=== PATIENT | male | born 1950 | race Native Hawaiian/Other Pacific Islander ===

== ENCOUNTER 2017-04-11 11:50 | Outpatient (CLI) | payer OTHER ==
[~2017-04-11] VITALS: Ht 175.3 cm; Wt 71.7 kg
[~2017-04-11 11:50] MED LIST: CLONAZEP ODT2 MG; GLIP10TA55 PO; GLUCOVANCE1 TA1; HYDR10TA47A PO; HYDR5TAB9 PO; HYDROCO/APAP1 T14; IBUP800T30; LEVEMIR FLEXPEN SC; NOVOLOG100 MG/ML; ZANTAC 75 PO
[2017-04-11 12:40] VITALS: BP 133/62; TEMP 97.7
[2017-04-11 12:52] LABS: PLATELET COUNT 402 K/uL (142-355)
[2017-04-11 13:20] LABS: POTASSIUM 4.7 mmol/L (3.6-5.2); SODIUM 137 mmol/L (136-145)
== END 2017-04-11 12:40 | disposition home or self-care (01) ==
LOC: INF 11:50 → LAB 11:50 → INF 12:40
PROVIDERS: Family Medicine
DX: E10.10 Type 1 diabetes mellitus with ketoacidosis without coma (principal); E87.6 Hypokalemia; G47.09 Other insomnia; Z79.4 Long term (current) use of insulin; K21.9 Gastro-esophageal reflux disease without esophagitis; J44.9 Chronic obstructive pulmonary disease, unspecified; M54.5 Low back pain; I12.9 Hypertensive chronic kidney disease with stage 1 through stage 4 chronic kidney disease, or unspecified chronic kidney disease; N18.3 Chronic kidney disease, stage 3 (moderate); L03.114 Cellulitis of left upper limb
CPT/HCPCS: 80053; 80061; 81000; 82306; 83036; 84439; 84443; 85027; 96372; J0696

== ENCOUNTER 2017-04-12 10:57 | Outpatient (CLI) | payer OTHER ==
[~2017-04-12] VITALS: Ht 175.3 cm; Wt 71.7 kg
[2017-04-12 11:04] VITALS: BP 113/68; TEMP 98
== END 2017-04-12 19:14 | disposition home or self-care (01) ==
LOC: INF 10:57
DX: L03.114 Cellulitis of left upper limb (principal)
CPT/HCPCS: J0696

== ENCOUNTER 2017-04-13 10:38 | Outpatient (CLI) | payer OTHER | END 2017-04-13 19:07 | disposition home or self-care (01) | LOC: INF 10:38 | DX: L03.114 Cellulitis of left upper limb (principal); E11.9 Type 2 diabetes mellitus without complications | CPT/HCPCS: 96372; J0696 ==

== ENCOUNTER 2017-06-18 20:08 | Outpatient (CLI) | payer OTHER | END 2017-06-18 20:20 | disposition short-term general hospital (02) | LOC: AMB 20:08 | DX: E11.65 Type 2 diabetes mellitus with hyperglycemia (principal); R11.2 Nausea with vomiting, unspecified | CPT/HCPCS: A0425; A0427 ==

== ENCOUNTER 2017-06-18 20:24 | Emergency (ER) | payer OTHER ==
[~2017-06-18] VITALS: Ht 175.3 cm; Wt 74.8 kg
[2017-06-18 21:05] LABS: PLATELET COUNT 471 K/uL (142-355)
[2017-06-18 22:35] LABS: POTASSIUM 5.8 mmol/L (3.6-5.2)
[2017-06-19 00:21] VITALS: BP 148/78; TEMP 98.7
== END 2017-06-19 00:15 | disposition short-term general hospital (02) ==
LOC: ED 20:24
DX: E13.10 Other specified diabetes mellitus with ketoacidosis without coma (principal); R11.2 Nausea with vomiting, unspecified
CPT/HCPCS: 36415; 36600; 51702; 80053; 81002; 82805; 85027; 93005; 96360; 96361; 96365; 96375; 96376; 99285; J1815; J2405; J3490

== ENCOUNTER 2017-11-01 09:10 | Outpatient (CLI) | payer OTHER ==
[2017-11-01 09:41] LABS: PLATELET COUNT 592 K/uL (142-355)
[2017-11-01 10:07] LABS: POTASSIUM 4.4 mmol/L (3.6-5.2)
== END 2017-11-01 19:38 | disposition home or self-care (01) ==
LOC: LABW 09:10
PROVIDERS: Family Medicine
DX: E11.65 Type 2 diabetes mellitus with hyperglycemia (principal); E55.9 Vitamin D deficiency, unspecified
CPT/HCPCS: 36415; 80053; 80061; 81000; 82306; 83036; 85027

== ENCOUNTER 2019-12-31 10:44 | Emergency (ER) | payer OTHER ==
[~2019-12-31] VITALS: Ht 175.3 cm; Wt 72.6 kg
[2019-12-31 11:15] LABS: PLATELET COUNT 490 K/uL (142-355)
[2019-12-31 12:05] LABS: SODIUM 116 mmol/L (136-145)
[2019-12-31 12:06] LABS: POTASSIUM 6.3 mmol/L (3.6-5.2)
[2019-12-31 14:55] VITALS: BP 112/66
== END 2019-12-31 14:55 | disposition short-term general hospital (02) ==
LOC: ED 10:44
PROVIDERS: Family Medicine
PROC: 0T9B70Z Drainage of Bladder with Drainage Device, Via Natural or Artificial Opening (ICD-10-PCS; principal; 2019-12-31)
DX: A41.9 Sepsis, unspecified organism (principal); E11.65 Type 2 diabetes mellitus with hyperglycemia; Z79.4 Long term (current) use of insulin; E87.1 Hypo-osmolality and hyponatremia
CPT/HCPCS: 36415; 36600; 51702; 80053; 81000; 82150; 82550; 82553; 82805; 82947; 82962; 83605; 83690; 84484; 85007; 85027; 85610; 87040; 93005; 96361; 96365; 96366; 96375; 99285; J0696; J1815; J2060

== ENCOUNTER 2020-02-07 04:55 | Emergency (ER) | payer OTHER ==
[~2020-02-07] VITALS: Ht 175.3 cm; Wt 47.6 kg
[2020-02-07 05:52] LABS: POTASSIUM 5.8 mmol/L (3.6-5.2)
[2020-02-07 05:53] LABS: PLATELET COUNT 641 K/uL (142-355)
[2020-02-07 10:00] VITALS: BP 121/51
== END 2020-02-07 10:20 | disposition short-term general hospital (02) ==
LOC: ED 05:01
PROC: 0T9B70Z Drainage of Bladder with Drainage Device, Via Natural or Artificial Opening (ICD-10-PCS; principal; 2020-02-07)
DX: E11.10 Type 2 diabetes mellitus with ketoacidosis without coma (principal); Z79.4 Long term (current) use of insulin; E87.2 Acidosis; A41.9 Sepsis, unspecified organism; K72.90 Hepatic failure, unspecified without coma
CPT/HCPCS: 36415; 36600; 51702; 80053; 81000; 81002; 82140; 82805; 82947; 82962; 83605; 83735; 84484; 85027; 87040; 93005; 96360; 96361; 96365; 96366; 96368; 96375; 96376; 99285; J1815; J2543; J3370; J3490

== ENCOUNTER 2020-04-13 08:18 | Outpatient (CLI) | payer OTHER | END 2020-04-13 19:46 | disposition home or self-care (01) | LOC: LAB 08:18 | DX: Z20.828 Contact with and (suspected) exposure to other viral communicable diseases (principal); R05 Cough; J34.89 Other specified disorders of nose and nasal sinuses; J02.9 Acute pharyngitis, unspecified; H66.93 Otitis media, unspecified, bilateral | CPT/HCPCS: 87635; G2023; U00003 ==

== ENCOUNTER 2020-09-01 18:06 | Inpatient (IN) | payer OTHER ==
[~2020-09-01] VITALS: Ht 175.3 cm; Wt 73.9 kg
[2020-09-01] VITALS (10 sets, daily range): BP systolic 114–188; BP diastolic 47–76; TEMP 90.7–98.7
[~2020-09-01 18:06] MED LIST changes: -NOVOLOG100 MG/ML; +NOVOLOG100 UNIT/M SC
[2020-09-01 18:48] LABS: PARTIAL THROMBOPLASTIN TIME 35.3 SECONDS (24.5-33.6)
[2020-09-01 19:38] LABS: PLATELET COUNT 453 K/uL (142-355)
[2020-09-01 19:51] LABS: SODIUM 118 mmol/L (136-145)
[2020-09-01 19:53] LABS: POTASSIUM 6.6 mmol/L (3.6-5.2)
[2020-09-01 22:34] LABS: POTASSIUM 5.7 mmol/L (3.6-5.2)
[2020-09-02] VITALS (24 sets, daily range): BP systolic 100–143; BP diastolic 48–71; TEMP 91.5–100.8; Ht 175.3 cm; Wt 73.9 kg
[2020-09-02 02:38] LABS: POTASSIUM 5.3 mmol/L (3.6-5.2)
[2020-09-02 06:54] LABS: PLATELET COUNT 329 K/uL (142-355)
[2020-09-02 07:07] LABS: POTASSIUM 4.7 mmol/L (3.6-5.2)
[2020-09-02] MEDS ORDERED: CETI10TA PO (15:08)
[2020-09-02] MEDS ORDERED: TRISEBA SC (15:13)
[2020-09-02] MEDS ORDERED: LOSA50TA PO (15:15)
[2020-09-02] MEDS ORDERED: SEROQUEL50 MG PO (15:16)
[2020-09-02] MEDS ORDERED: REMERON30 MG PO (15:30)
[2020-09-02] MEDS ORDERED: OMEP40CA PO (15:30)
[2020-09-02] MEDS ORDERED: FURO20TA67 PO (15:31)
[2020-09-03] VITALS (23 sets, daily range): BP systolic 97–149; BP diastolic 45–76; TEMP 98–98.8
[2020-09-03 00:56] LABS: POTASSIUM 3.3 mmol/L (3.6-5.2)
[2020-09-03 05:53] LABS: PLATELET COUNT 267 K/uL (142-355)
[2020-09-03 06:29] LABS: POTASSIUM 3.2 mmol/L (3.6-5.2)
[2020-09-04] VITALS (13 sets, daily range): BP systolic 104–143; BP diastolic 54–81; TEMP 98.5–99
[2020-09-04 09:24] LABS: PLATELET COUNT 231 K/uL (142-355)
[2020-09-04 09:36] LABS: POTASSIUM 3.3 mmol/L (3.6-5.2)
[2020-09-05] VITALS: BP 131/75; TEMP 98.8
[2020-09-05 04:00] VITALS: BP 130/74; TEMP 98.7
[2020-09-05 08:00] VITALS: BP 142/83; TEMP 98.3
[2020-09-05] MEDS ORDERED: LEVAQUIN250 MG PO (11:44)
[2020-09-05 12:00] VITALS: BP 142/70; TEMP 98.3
== END 2020-09-05 16:40 | disposition home or self-care (01) | DRG 871 ==
LOC: ED 18:06 → ICU 21:00 → MED/SURG 09-04 12:20
PROVIDERS: ADMIT Hospitalist; ATTEND Internal Medicine Endocrinology, Diabetes & Metabolism
DX: A41.89 Other specified sepsis (principal); E11.10 Type 2 diabetes mellitus with ketoacidosis without coma; J18.8 Other pneumonia, unspecified organism; N17.9 Acute kidney failure, unspecified; Z79.4 Long term (current) use of insulin; K21.9 Gastro-esophageal reflux disease without esophagitis; I10 Essential (primary) hypertension; G89.29 Other chronic pain; Z72.0 Tobacco use; I12.9 Hypertensive chronic kidney disease with stage 1 through stage 4 chronic kidney disease, or unspecified chronic kidney disease; E11.22 Type 2 diabetes mellitus with diabetic chronic kidney disease; E11.65 Type 2 diabetes mellitus with hyperglycemia; N18.30 Chronic kidney disease, stage 3 unspecified; E83.42 Hypomagnesemia
CPT/HCPCS: 36415; 36600; 51702; 80048; 80053; 80320; 81000; 81002; 82550; 82553; 82805; 82962; 83036; 83605; 83735; 83880; 84484; 85007; 85027; 85610; 85730; 87040; 87088; 87635; 93005; 96360; 96361; 96365; 96366; 96375; 99285; J1650; J1815; J1956; J2405; J3475; J3490; U0003

== ENCOUNTER 2022-04-10 09:31 | Observation (INO) | payer OTHER ==
[~2022-04-10] VITALS: Ht 175.3 cm; Wt 81.6 kg
[~2022-04-10 09:31] MED LIST changes: +CETI10TA PO; +FURO20TA67 PO; +INSULIN LI100 UNIT/1 SC; +LEVAQUIN250 MG PO; +LOSA50TA PO; -NOVOLOG100 UNIT/M SC; +OMEP40CA PO; +REMERON30 MG PO; +SEROQUEL50 MG PO; +TRISEBA SC
[2022-04-10 09:39] VITALS: BP 129/88; TEMP 97.1
[2022-04-10 10:04] LABS: PLATELET COUNT 345 K/uL (142-355)
[2022-04-10 10:14] LABS: PARTIAL THROMBOPLASTIN TIME 28.6 SECONDS (24.5-33.6)
[2022-04-10 10:20] LABS: POTASSIUM 3.6 mmol/L (3.6-5.2)
[2022-04-10 10:30] VITALS: BP 129/78
[2022-04-10 12:36] VITALS: BP 132/72; TEMP 97.8; Ht 175.3 cm; Wt 81.6 kg
[2022-04-10] MEDS ORDERED: GABA300C2 PO (13:27)
[2022-04-10] MEDS ORDERED: LIPITOR10 MG PO (13:27)
[2022-04-10] MEDS ORDERED: ALBUTEROL108 MCG/AC INH (13:29)
[2022-04-10 16:00] VITALS: BP 147/85; TEMP 97.6
[2022-04-10 20:00] VITALS: BP 140/75; TEMP 97.7
[2022-04-11] VITALS: BP 133/79; TEMP 97.5
[2022-04-11 04:00] VITALS: BP 140/77; TEMP 97.7
[2022-04-11 08:25] VITALS: BP 145/77; TEMP 98.2
[2022-04-11 09:41] VITALS: BP 145/77; TEMP 98.2
[2022-04-11 11:26] VITALS: BP 142/80; TEMP 98
[2022-04-11] MEDS ORDERED: ATOR20TA2 PO (11:51)
[2022-04-11] MEDS ORDERED: CLOP75TA2 PO (11:52)
[2022-04-11 13:24] VITALS: BP 142/80; TEMP 98
== END 2022-04-11 14:07 | disposition home or self-care (01) ==
LOC: ED 09:31 → MED/SURG 10:45
PROVIDERS: Hospitalist; ADMIT Internal Medicine; ATTEND Internal Medicine
DX: I63.231 Cerebral infarction due to unspecified occlusion or stenosis of right carotid arteries (principal); E11.65 Type 2 diabetes mellitus with hyperglycemia; I10 Essential (primary) hypertension; I65.29 Occlusion and stenosis of unspecified carotid artery; K21.9 Gastro-esophageal reflux disease without esophagitis; J44.9 Chronic obstructive pulmonary disease, unspecified
CPT/HCPCS: 80053; 82550; 82948; 83880; 84484; 85027; 85610; 85730; 87635; 93005; 94760; 96372; 99220; 99284; A9576; G0378; J1650; J1815; U0003

== ENCOUNTER 2022-09-24 09:18 | Emergency (ER) | payer OTHER ==
[~2022-09-24] VITALS: Ht 175.3 cm; Wt 81.6 kg
[2022-09-24 09:18] VITALS: TEMP 96.7
[~2022-09-24 09:18] MED LIST changes: +ALBUTEROL108 MCG/AC INH; +ATOR20TA2 PO; +CLOP75TA2 PO; +GABA300C2 PO; +LIPITOR10 MG PO
[2022-09-24 09:52] LABS: PLATELET COUNT 612 K/uL (142-355)
[2022-09-24 10:05] LABS: POTASSIUM 4.8 mmol/L (3.6-5.2)
[2022-09-24 12:33] LABS: POTASSIUM 3.5 mmol/L (3.6-5.2)
[2022-09-24 12:46] VITALS: BP 126/66
== END 2022-09-24 13:40 | disposition short-term general hospital (02) ==
LOC: ED 09:18
PROVIDERS: Emergency Medicine Emergency Medical Services
PROC: 0T9B70Z Drainage of Bladder with Drainage Device, Via Natural or Artificial Opening (ICD-10-PCS; principal; 2022-09-24)
DX: E11.10 Type 2 diabetes mellitus with ketoacidosis without coma (principal); Z79.4 Long term (current) use of insulin; K85.80 Other acute pancreatitis without necrosis or infection
CPT/HCPCS: 36415; 36600; 51702; 80048; 80053; 81000; 81002; 82150; 82805; 83605; 83690; 83735; 83880; 84484; 85027; 85610; 87040; 93005; 96360; 96361; 96365; 96366; 96375; 96376; 99285; J1815; J2060; J2270; J2405; J2543; J3490

== ENCOUNTER 2022-11-07 20:00 | Emergency (ER) | payer OTHER ==
[~2022-11-07] VITALS: Ht 175.3 cm; Wt 78.0 kg
[2022-11-07 20:10] VITALS: TEMP 98.6
[2022-11-07 21:40] VITALS: BP 160/72
== END 2022-11-07 21:40 | disposition home or self-care (01) ==
LOC: ED 20:00
DX: R13.19 Other dysphagia (principal)
CPT/HCPCS: 99283